=== PATIENT | female | born 1970 | race Caucasian/White ===

== ENCOUNTER 2017-09-15 08:02 | Outpatient (CLI) | payer OTHER ==
[2016-02-27 10:55] VITALS: BMI 40.7
== END 2017-09-15 08:03 | disposition home or self-care (01) ==
LOC: LAB 08:02
PROVIDERS: ATTEND General Practice
DX: I10 Essential (primary) hypertension (principal); R63.8 Other symptoms and signs concerning food and fluid intake
CPT/HCPCS: 36415; 80061; 83525